=== PATIENT | male | born 1965 | race Caucasian/White ===

== ENCOUNTER 2023-06-10 04:59 | Emergency (ER) | payer OTHER, SELFPAY ==
--- NOTE | ~2023-06-10 | XR_ITS ---
EXAMINATION: XR chest 1V portable INDICATION: Back pain TECHNIQUE: Portable AP chest at 0541 hours COMPARISON: None available FINDINGS: The lungs are free of acute opacities. No pleural effusion or pneumothorax. The cardiomedia stinal silhouette is normal. Calcified pulmonary nodules and calcified right hilar lymph nodes are co nsistent with old granulomatous disease. There are partially imaged changes of fusion of the cervical spine IMPRESSION: 1. No acute cardiopulmonary abnormality. Reviewed, dictated and finalized at location F. N [employer]W MEMBER
--- NOTE | ~2023-06-10 | CT_ITS ---
EXAMINATION: CT abdomen pelvis wo con DATE: 06/10/2023 05:48 INDICATION: Right flank pain TECHNIQUE: Computed tomography (CT) of the abdomen and pelvis was performed without intravenous contr ast. The dose-length product (DLP) was 565.52 mGy-cm. Automated exposure control and iterative recons truction technique were employed. COMPARISON: None FINDINGS: Calcified pulmonary nodules and calcified right hilar lymph nodes are consistent with old g ranulomatous disease. The heart size is normal. Calcified coronary artery atherosclerosis is noted. T he liver is diffusely low in attenuation when compared with the spleen, consistent with hepatic steat osis. Punctate calcifications in an otherwise normal spleen likely represent healed granulomatous dis ease. The pancreas, gallbladder, and adrenal glands are normal. There are stones measuring 4 mm and 2 mm in the proximal right ureter causing mild hydronephrosis. There are two nonobstructing stones of the right kidney measuring 2 mm. There is a 3.8 cm cyst of the left kidney lower pole. No pathologica lly enlarged abdominal or pelvic lymph nodes are identified. No free intraperitoneal gas or evidence of bowel obstruction. There is a left inguinal hernia containing fat. There is also a small umbilical hernia containing fat. There is mild lumbar spondylosis. IMPRESSION: 1. Two stones of the proximal right ureter, measuring 4 mm and 2 mm, causing mild hydronephrosis. 2. Nonobstructing right nephrolithiasis. 3. Diffuse hepatic steatosis. Reviewed, dictated and finalized at location F. HT SOFTWARE TEST ENGINEER IMPRESSION: 1. Two stones of the proximal right ureter, measuring 4 mm and 2 mm, causing mi ld hydronephrosis. 2. Nonobstructing right nephrolithiasis. 3. Diffuse hepatic steatosis.
[2023-06-10 05:06] VITALS: BP 188/99; PULSE 101; RESP 15; TEMP 37.1; O2SAT 98
--- NOTE | 2023-06-10 05:24 | ECG_ITS ---
Measurements Intervals [place] Rate: 84 P: 38 ME: 168 QRS: 19 QRSD: 95 T: 42 QT: 357 QTc: 422 Interpretive Statements SINUS RHYTHM POSSIBLE LEFT ATRIAL ENLARGEMENT CANNOT RULE OUT SEPTAL INFARCT, AGE INDETERMINATE ABNORMAL ECG NO PREVIOUS ECG AVAILABLE FOR COMPARISON Electronically Signed On 06-10-2023 8:32:09 [employer]LECT[employer] ENGINE[employer] by Mark Daly D.O.
--- NOTE | 2023-06-10 05:33 | ED.GENADULT ---
HPI - General Adult General Chief complaint: Back Pain/Injury Stated complaint: flank pain, hematuria Time Seen by Provider: 06/10/23 05:24 History of Present Illness HPI narrative: This is a 58-year-old male presenting ED with a chief complaint of right flank pain. Patient said the pain started at Thanksgiving. It is an achy pain it is nonradiating, makes it difficult to sit still and is improved with movement. He also notes he has had blood in his urine for the last several days. Denies fever chills chest pain difficulty breathing or abdominal pain. No history of kidney stones. Related Data Allergies Allergy/AdvReac Type Severity Reaction Status Date / Time Penicillins Allergy Unknown Lightheaded Verified 06/10/23 05:59 [facility] Past Medical History Medical History HTN (hypertension) Family History Family History Other Diabetes mellitus Family history of dementia Social History Social History Smoking status: Current every day smoker Alcohol intake: current Exam Narrative: APPEARANCE: No apparent distress. Patient is pacing the room Head: atraumatic. EYES: EOMI, NOSE: Atraumatic NECK: Trachea midline RESPIRATORY: No increased rate of breathing CARDIOVASCULAR: RRR, ABDOMINAL: Soft nontender no guarding rebound. No CVA tenderness MUSCULOSKELETAl: No tenderness to the paralumbar muscles NEURO: Alert. Moving 4/4 extremities SKIN:: Warm, dry. Normal color PSYCHIATRIC: Normal affect Course Vital Signs Vital signs: Vital Signs Temperature 98.8 F 06/10/23 05:06 Pulse Rate 101 H 06/10/23 05:06 Respiratory Rate 15 06/10/23 05:06 Blood Pressure 188/99 H 06/10/23 05:06 Pulse Oximetry 98 06/10/23 05:06 Oxygen Delivery Room Air 06/10/23 05:06 Temperature 98.8 F 06/10/23 05:06 Pulse Rate 82 06/10/23 06:18 Respiratory Rate 8 L 06/10/23 06:18 Blood Pressure 153/96 H 06/10/23 06:18 Pulse Oximetry 99 06/10/23 06:18 Oxygen Delivery Room Air 06/10/23 05:06 Medical Decision Making [facility] Narrative Medical decision making narrative: -Course: 58-year-old male presenting with hematuria and right flank pain. CT showed a 2 mm and 4 mm kidney stone with some hydronephrosis. Patient's pain was controlled in the emergency department. No evidence of infection. 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 Urine had +3 blood and 3-5 rbc's per high-power field. Chest x-ray unremarkable. Independent EKG interpretation: Rhythm [sinus], Rate [84], [place] -[normal], [place] -[normal], QRS [narrow], QTC [normal], T waves -[negative for concerning inversions], ST Segments - [Negative for concerning elevations] Final interpretations: [Normal Sinus Rhythm] -Interventions: Tylenol, Dilaudid, Robaxin, Toradol, 1 L NS -Shared decision making / Disposition: Discharged Vital Signs Vital Signs: Vital Signs Temperature 98.8 F 06/10/23 05:06 Pulse Rate 101 H 06/10/23 05:06 Respiratory Rate 15 06/10/23 05:06 Blood Pressure 188/99 H 06/10/23 05:06 Pulse Oximetry 98 06/10/23 05:06 Oxygen Delivery Room Air 06/10/23 05:06 Temperature 98.8 F 06/10/23 05:06 Pulse Rate 82 06/10/23 06:18 Respiratory Rate 8 L 06/10/23 06:18 Blood Pressure 153/96 H 06/10/23 06:18 Pulse Oximetry 99 06/10/23 06:18 Oxygen Delivery Room Air 06/10/23 05:06 Lab Data 06/10/23 05:33 06/10/23 05:33 Labs: Lab Results 06/10/23 06/10/23 06/10/23 Range/Units 05:32 05:33 05:42 WBC 12.8 H (
[2023-06-10 05:39] LABS: Basophils Absolute Auto 0.1 K/mm3 (0.0-0.1); Basophils Percent Auto 0.5 % (0.2-1.2); Eosinophils Absolute Auto 0.2 K/mm3 (0-0.3); Eosinophils Percent Auto 1.2 % (0-4.4); Hematocrit 49.2 % (42.0-52.0); Hemoglobin 16.8 g/dL (14.0-18.0); Immature Granulocyte Absolute 0.04 K/mm3 (0.00-0.031); Immature Granulocyte Percent A 0.3 % (0-0.5); Lymphocytes Absolute Auto 1.34 K/mm3 (0.9-3.2); Lymphocytes Percent Auto 10.5 % (18.3-44.2); Mean Corpuscular HGB Conc 34.1 g/dl (32-36); Mean Corpuscular Hemoglobin 31.6 pg (26-34); Mean Corpuscular Volume 92.5 fl (80-100); Monocytes Absolute Auto 0.6 K/mm3 (0.1-0.6); Monocytes Percent Auto 4.9 % (2.6-8.5); Neutrophils Absolute Auto 10.6 K/mm3 (1.3-6.7); Neutrophils Percent Auto 82.6 % (45.5-73.1); Platelet Count Result 240 k/mm3 (150-375); Red Blood Count 5.32 M/mm3 (4.6-6.20); Red Cell Distribution Width 12.4 % (11.5-14.5); White Blood Count 12.8 K/mm3 (4.5-10.0)
[2023-06-10 05:41] LABS: Glucose Point of Care 72 mg/dl (65-105)
[2023-06-10 05:50] LABS: Alanine Aminotransferase 64 U/L (6-50); Alkaline Phosphatase 59 U/L (38-126); Anion Gap 13 mmol/L (8-16); Aspartate Amino Transferase 46 U/L (17-59); Bilirubin,Total 0.8 mg/dL (0.2-1.3); Blood Urea Nitrogen 16 mg/dL (9-20); Calcium 9.9 mg/dL (8.4-10.2); Carbon Dioxide 24 mmol/L (22-30); Chloride 105 mmol/L (98-107); Estimated Glomerular Filt Rate > 60; Glucose 122 mg/dL (65-110); Lipase 113 U/L (23-300); Potassium 3.7 mmol/L (3.4-5.0); Sodium 142 mmol/L (137-145)
[2023-06-10] MEDS: HYDROmorphone HCL INJ (*CRX) 1 MG/ML SYR 0.5 MG IV PUSH (05:51)
[2023-06-10] MEDS: ACETAMINOPHEN 500 MG TABLET 1000 MG PO (05:51)
[2023-06-10] MEDS: SODIUM CHLORIDE 0.9% IV 1,000 ML 999 ML IV CONT (05:51)
[2023-06-10] MEDS: methocarbamoL 750 MG TABLET 1500 MG PO (05:52)
[2023-06-10 05:53] LABS: Add Urine Microscopic? YES; Appearance Urine Cloudy (Clear); Bacteria Urine None Seen /hpf; Bilirubin Urine Negative (Negative); Blood Urine 3+ (Negative); Color Urine Yellow (Yellow); Glucose Urine UA Negative (Negative); Ketones Urine Negative (Negative); Leukocyte Esterase Ur Negative LEU/UL (Negative); Nitrate Urine Negative (Negative); Non Pathogenic Casts 0-2; Protein Urine Negative (Negative); Specific Grav Ur 1.009 (1.001-1.035); Squamous Epithelial Cell Urine None seen /hpf (Few); Urobilinogen Urine 0.2 mg/dL (<2.0); WBC Urine 0-5 /hpf
[2023-06-10 06:18] VITALS: BP 153/96; PULSE 82; RESP 8; O2SAT 99
[2023-06-10] MEDS: KETOROLAC 15 MG/ML VIAL (*BKC) IV PUSH (06:59)
== END 2023-06-10 07:10 | disposition home or self-care (01) ==
PROVIDERS: Emergency Provider Emergency Medicine; PCP Family Medicine Sports Medicine
DX: N13.2 Hydronephrosis with renal and ureteral calculous obstruction (principal); I10 Essential (primary) hypertension; F17.210 Nicotine dependence, cigarettes, uncomplicated; K76.0 Fatty (change of) liver, not elsewhere classified; R94.31 Abnormal electrocardiogram [ECG] [EKG]
CPT/HCPCS: 36415; 71045; 74176; 80053; 81001; 82948; 83690; 85025; 93005; 96361; 96374; 96375; 99284; A9270; J1170; J1885; J7030